=== PATIENT | female | born 1995 | race Asian ===

== ENCOUNTER 2020-01-08 05:54 | Inpatient (IN) | payer OTHER, MEDICAID ==
[2020-01-08 07:06] LABS: Urine Benzodiazepine Screen None Detected (None Detect); Urine Buprenorphine Screen None Detected (None Detect); Urine Hydrocodone Screen None Detected (None Detect); Urine Opiates Screen None Detected (None Detect)
[2020-01-08] MEDS ORDERED: ceFOXitin 2 GM IVPREMIX* 2 GM/50 ML BAG IVPB ONE (07:13)
[2020-01-08] MEDS ORDERED: Morphine PF AMP (0.5MG/ML)* 5 MG/10 ML AMP ONE (08:03)
[2020-01-08] MEDS ORDERED: fentaNYL* 50 MCG/ML 2 ML VIAL (100 MCG VIAL) ONE (08:04)
[2020-01-08] MEDS ORDERED: Phenylephrine 40 MCG/ML SYRINGE ONE (08:41)
[2020-01-08] MEDS ORDERED: OXYTOCIN* 10 UNITS/ML 1 ML VIAL ONE (08:45)
[2020-01-08] MEDS ORDERED: diPHENhydraMINE IV* 50 MG/ML 1 ml VIAL (BENADRYL) IV PRN (09:24)
[2020-01-08] MEDS ORDERED: PROCHLORPERAZINE INJ 5 MG/ML 2 ML VIAL IV PRN (09:24)
[2020-01-08] MEDS ORDERED: oxyCODONE TAB* 5 MG TAB PO PRN (09:24)
[2020-01-08] MEDS ORDERED: Naloxone* 0.4 MG/ML 1 ML VIAL IV PRN (09:24)
[2020-01-08] MEDS ORDERED: Ondansetron INJ* 2 MG/ML VIAL IV PRN (09:24)
[2020-01-08] MEDS ORDERED: Acetaminophen TAB* 325 MG PO PRN (09:24)
[2020-01-08] MEDS ORDERED: Ketorolac INJ* 30 MG/ML 1 ML VIAL ONE (09:49)
[2020-01-08] MEDS ORDERED: Witch Hazel PAD* JAR TOPICAL PRN (10:20)
[2020-01-08] MEDS ORDERED: Dibucaine 1% 28.35 GM TUBE PR PRN (10:20)
[2020-01-08] MEDS ORDERED: Glycerin ADULT SUPP PR PRN (10:20)
[2020-01-08] MEDS ORDERED: Lactated Ringers 1000 ML Bag* 1,000 ML IV SCH (11:00)
[2020-01-08] MEDS ORDERED: Oxytocin in LR* 20 UNITS/1,000 ML BAG IVPB SCH (11:00)
[2020-01-08] MEDS: Simethicone TAB* 80 MG TAB.CHEW PO SCH ×3 (12:43→19:38)
[2020-01-08] MEDS: Docusate CAP* 100 MG PO SCH ×2 (13:56→19:37)
[2020-01-08] MEDS: Ketorolac INJ* 30 MG/ML 1 ML VIAL IV PRN ×2 (15:40→21:48)
--- NOTE | 2020-01-09 00:23 | OP ---
OPERATIVE REPORT: DATE OF OPERATION: 01/08/20 DATE OF : 89 SURGEON: Dr. Jyoti Lopez. [employer] ARCHITECT: Bari Cheek MD ANESTHESIOLOGIST: Dr. Bishop. ANESTHESIA: Spinal anesthesia. PRE-OP DIAGNOSIS: Desires repeat section, desires permanent sterility. POST-OP DIAGNOSIS: Desires repeat section, desires permanent sterility, delivered. OPERATIVE PROCEDURE: Repeat low transverse section, lysis of adhesions, and bilateral tubal ligation. ESTIMATED BLOOD LOSS: 400 cc. URINE OUTPUT: 125 cc of clear yellow urine. FLUIDS: 1700 cc of crystalloid. FINDINGS: Revealed a vertex male infant. Cord around the arm x1. No meconium. Apgars were 8 at 1 m inute, 9 at 5 minutes. Weight was 6 pounds 12 ounces. The patient with multiple dense adhesions of the uterine wall to the posterior abdominal wall. Omental adhesion to the uterus. Large [address] ligament fibroid. Remnant of left ovary and no left fimbria seen. Normal-appearing right tube and ovary. Normal-appearing placenta. Manually extracted 3-vessel cord and intact. COMPLICATIONS: None apparent. DISPOSITION: Stable to recovery room. DESCRIPTION OF PROCEDURE: The patient was placed in dorsal lithotomy position. Abdomen was prepped a nd draped in a sterile standard fashion. The patient was identified with the universal protocol for a correct procedure, patient, and position. After testing anesthesia to appropriate level, an incisi on was made with scalpel. This was carried down through to the fascia. There was a small keloid to the right edge of the incision and this was excised with scalpel. The fascia was identified and the fascial incision was extended laterally and superiorly. There was a small window noted high on the u terus and dense adhesions of the uterine wall to the posterior peritoneum. The plane was dissected w ith care to avoid the bladder and an incision was made in the lower uterine segment with the scalpel, tented up on Allis, taken down to the membranes. Uterine incision was extended laterally and superi leonel using bandage scissors. Amniotomy was created for clear fluid. Infant was delivered vertex, al lowed to cry, and was vigorous and crying at delivery. Cord on arm was reduced and cord was allowed to pulse for a minute, then milked, and clamped then cut. Infant was handed off to awaiting neonatol ogist. Appropriate cord blood was obtained. Placenta was then manually extracted. Uterus was exteri orized. There was a dense adhesion of the omentum to the fundus of the uterus. The uterine incision was reapproximated after exploration of the uterine cavity and removal of all membranes and placenta l tissue. The uterine incision was reapproximated in 2 layers, first layer running locked, second la andrew running imbricated. The adhesion of the omentum to the uterus was clamped with Jeanette, transected sharply, and then suture ligated using 0 Vicryl. Hemostasis was noted on the serosal surface of the uterus and on the ligature suture of the omentum. At that point, the anatomy was visualized. There was a small remnant of the left ovary and no left fimbria were noted. There was a vestige of a left fallopian tube. This was doubly clamped with a Jeanette, excised using Metzenbaum. Both afferent and efferent end of the tube was identified near the fundus of the uterus. The Vicryl was applied 2-0 in interrupted fashion and Katt ligated. This process was repeated on the right fallopian tube. Fimb jacques was identified, clamped across the distal third of the tube with Jeanette x2, transected and then li gated free tie 2- 0 Vicryl, and then suture ligated in a Katt fashion using 2-0 Vicryl. Hemostasis was noted. The uterus was returned intraabdominally. Hemostasis was assured at both the omental li gature and the tubal ligation site and as well as the hysterotomy site. There was no peritoneum to c lose. The fascia was then reapproximated using 0 Vicryl x2 in a running fashion. A subcuticular fat stitch was applied using 0 Vicryl for complete reapproximation of Camper fascia and the skin was the n reapproximated using 4-0 Monocryl in a subcuticular fashion. Mastisol and Steris were applied. The patient tolerated the procedure well and counts were correct throughout the entirety of the case for sponge, needle, and instrument. [id number]/[facility] #: [id number]
[2020-01-09] MEDS ORDERED: oxyCODONE TAB* 5 MG TAB PO PRN (01:24)
[2020-01-09] MEDS: Ketorolac INJ* 30 MG/ML 1 ML VIAL IV PRN (03:59)
[2020-01-09 06:54] LABS: ABS Lymphocytes 1.4 10^3/ul (1.0-4.8); ABS Monocytes 0.7 10^3/ul (0-0.8); ABS Neutrophils 6.8 10^3/ul (1.5-7.7); Eosinophil % 0.2 %; Hematocrit 31 % (35-47); Hemoglobin 10.5 g/dL (12.0-16.0); Lymphocyte % 15.4 %; Mean Corpuscular HGB Conc 34 g/dL (31-36); Mean Corpuscular Hemoglobin 31 pg (27-31); Mean Corpuscular Volume 91 fL (80-97); Mean Platelet Volume 8.1 fL (7.4-10.4); Platelet Count 191 10^3/uL (150-450); Red Blood Count 3.36 10^6 /uL (3.70-4.87); Red Cell Distribution Width 14 % (10-15); White Blood Count 8.9 10^3/uL (3.5-10.8)
[2020-01-09] MEDS: oxyCODONE TAB* 5 MG TAB PO PRN ×3 (08:21→21:21)
[2020-01-09] MEDS: Simethicone TAB* 80 MG TAB.CHEW PO SCH ×4 (08:21→21:21)
[2020-01-09] MEDS: Docusate CAP* 100 MG PO SCH ×3 (08:21→21:22)
[2020-01-09] MEDS ORDERED: Ferrous Gluconate TAB* 324 MG TAB PO SCH (09:00)
[2020-01-09] MEDS: Ibuprofen TAB* 600 MG PO PRN ×2 (13:04→19:43)
[2020-01-10] MEDS: oxyCODONE TAB* 5 MG TAB PO PRN ×3 (02:39→17:51)
[2020-01-10] MEDS: Ibuprofen TAB* 600 MG PO PRN ×2 (02:39→13:57)
[2020-01-10] MEDS: Acetaminophen TAB* 325 MG PO PRN ×2 (07:39→17:52)
[2020-01-10] MEDS: Simethicone TAB* 80 MG TAB.CHEW PO SCH ×4 (07:40→20:13)
[2020-01-10] MEDS: Docusate CAP* 100 MG PO SCH ×3 (07:40→20:13)
[2020-01-11] MEDS: oxyCODONE TAB* 5 MG TAB PO PRN ×2 (02:17→10:41)
[2020-01-11 08:25] VITALS: BP 119/75
[2020-01-11] MEDS: Ibuprofen TAB* 600 MG PO PRN (08:37)
[2020-01-11] MEDS: Simethicone TAB* 80 MG TAB.CHEW PO SCH (08:37)
[2020-01-11] MEDS: Docusate CAP* 100 MG PO SCH (08:37)
[2020-01-11] MEDS: Acetaminophen TAB* 325 MG PO PRN (10:41)
== END 2020-01-11 11:55 | disposition home or self-care (01) | DRG 785 ==
LOC: MCHOB 05:54 → MERGE 07:45
PROVIDERS: ADMIT Obstetrics & Gynecology; ATTEND Obstetrics & Gynecology
PROC: 0UB70ZZ Excision of Bilateral Fallopian Tubes, Open Approach (ICD-10-PCS; 2020-01-08)
PROC: 4A1HXCZ Monitoring of Products of Conception, Cardiac Rate, External Approach (ICD-10-PCS; 2020-01-08)
PROC: 0JB83ZZ Excision of Abdomen Subcutaneous Tissue and Fascia, Percutaneous Approach (ICD-10-PCS; 2020-01-08)
PROC: 10D00Z1 Extraction of Products of Conception, Low, Open Approach (ICD-10-PCS; principal; 2020-01-08 07:45)
DX: O34.211 Maternal care for low transverse scar from previous cesarean delivery (principal); O34.13 Maternal care for benign tumor of corpus uteri, third trimester; D25.9 Leiomyoma of uterus, unspecified; O69.82X0 Labor and delivery complicated by other cord entanglement, without compression, not applicable or unspecified; Z3A.39 39 weeks gestation of pregnancy; Z37.0 Single live birth; Z88.0 Allergy status to penicillin; Z30.2 Encounter for sterilization
CPT/HCPCS: 36415; 80307; 85025; 88302; A9270-GY; G0480; J0694; J1885; J2590; J3010